=== PATIENT | male | born 1945 | race Caucasian/White ===

== ENCOUNTER → 2024-01-16 13:42 | Outpatient (REF) | payer MEDICARE, SELFPAY ==
[2024-01-16 15:33] LABS: PSA, Total - Diagnostic 0.09 ng/ml (0.0-4.0)
== END ==
LOC: REG 13:42
PROVIDERS: ATTENDING PHYSICIAN Internal Medicine; REFERRING PHYSICIAN Physician Assistant
DX: C61 Malignant neoplasm of prostate (principal)
CPT/HCPCS: 36415; 84153

== ENCOUNTER → 2024-02-20 11:34 | Outpatient (REF) | payer MEDICARE, SELFPAY ==
[2024-02-20 12:51] LABS: % Basophils 0.5 % (0-2); % Eosinophils 1.2 % (0-6); % Immature Granulocytes 0.2 % (0-0.5); % Lymphocytes 30.3 % (20.5-51.1); % Monocytes 10.5 % (1.7-9.3); % Neutrophils 57.3 % (42.2-75.2); Absolute Eosinophils 0.1 10^3/uL (0-0.7); Absolute Monocytes 0.7 10^3/uL (0.1-0.6); Absolute Neutrophils 3.8 10^3/uL (1.4-6.5); Hematocrit 45.4 % (39.0-52.0); Hemoglobin 15.8 g/dL (13.0-18.0); Mean Corp Hgb Conc. 34.8 g/dL (33.0-37.0); Mean Corpuscular Hgb 32.3 pg (27.0-31.0); Mean Corpuscular Volume 92.8 fL (80.0-94.0); Mean Platelet Volume 9.1 fL (7.4-10.4); Nucleated Red Blood Cells % 0 % (-); Platelet Count 244 10^3/uL (130-400); Red Blood Cell Count 4.89 10^6/uL (4.70-6.10); Red Cell Dist. Width 12.7 % (11.5-14.5); White Blood Cell Count 6.6 10^3/uL (4.8-10.8)
[2024-02-20 13:33] LABS: PSA, Total - Screen 0.08 ng/ml (0.0-4.0); TSH Reflex To Free T4 1.83 uIU/ml (0.47-4.68)
[2024-02-20 13:43] LABS: ALT (SGPT) 22 U/L (0-50); AST (SGOT) 28 U/L (17-59); Albumin 4.5 g/dl (3.5-5.0); Alkaline Phosphatase 71 U/L (38-126); Blood Urea Nitrogen 27 mg/dl (9-20); Calcium 9.9 mg/dl (8.4-10.2); Carbon Dioxide 24 mmol/L (22-30); Chloride 107 mmol/L (98-107); Glucose 103 mg/dl (70-99); HDL Cholesterol 48 mg/dl; LDL Cholesterol, Calculated 115 mg/dl; Potassium 4.4 mmol/L (3.5-5.1); Sodium 140 mmol/L (135-145); Total Bilirubin 0.8 mg/dl (0.2-1.3); Total Cholesterol 181 mg/dl (50-199); Total Protein 7.7 g/dl (6.3-8.2); Triglyceride 90 mg/dl (10-149); Very Low Density Lipoprotein 18 mg/dl (0-30); eGFR > 60.00
== END ==
LOC: REG 11:34
PROVIDERS: ATTENDING PHYSICIAN Internal Medicine
DX: Z79.01 Long term (current) use of anticoagulants (principal); I10 Essential (primary) hypertension; Z00.00 Encounter for general adult medical examination without abnormal findings; R53.83 Other fatigue; C61 Malignant neoplasm of prostate; Z12.5 Encounter for screening for malignant neoplasm of prostate
CPT/HCPCS: 36415; 80053; 80061; 84443; 85025; G0103

== ENCOUNTER 2024-04-15 09:57 | Day surgery (SDC) | payer MEDICARE, SELFPAY ==
[2024-03-26 12:52] VITALS: BMI 28.4
[2024-03-26 13:22] LABS: % Basophils 0.5 % (0-2); % Eosinophils 1.8 % (0-6); % Immature Granulocytes 0.3 % (0-0.5); % Lymphocytes 26.9 % (20.5-51.1); % Monocytes 9.5 % (1.7-9.3); Absolute Eosinophils 0.1 10^3/uL (0-0.7); Absolute Monocytes 0.7 10^3/uL (0.1-0.6); Absolute Neutrophils 4.5 10^3/uL (1.4-6.5); Hematocrit 45.3 % (39.0-52.0); Hemoglobin 15.5 g/dL (13.0-18.0); Mean Corp Hgb Conc. 34.2 g/dL (33.0-37.0); Mean Corpuscular Hgb 32.8 pg (27.0-31.0); Mean Corpuscular Volume 95.8 fL (80.0-94.0); Mean Platelet Volume 8.6 fL (7.4-10.4); Nucleated Red Blood Cells % 0 % (-); Platelet Count 235 10^3/uL (130-400); Red Blood Cell Count 4.73 10^6/uL (4.70-6.10); Red Cell Dist. Width 12.5 % (11.5-14.5); White Blood Cell Count 7.4 10^3/uL (4.8-10.8)
[2024-03-26 14:23] LABS: ALT (SGPT) 21 U/L (0-50); AST (SGOT) 27 U/L (17-59); Albumin 4.3 g/dl (3.5-5.0); Alkaline Phosphatase 60 U/L (38-126); Blood Urea Nitrogen 24 mg/dl (9-20); Calcium 9.3 mg/dl (8.4-10.2); Carbon Dioxide 28 mmol/L (22-30); Chloride 106 mmol/L (98-107); Estimated Creatinine Clearance 53 ml/min; Glucose 95 mg/dl (70-99); Potassium 4.8 mmol/L (3.5-5.1); Sodium 142 mmol/L (135-145); Total Bilirubin 0.6 mg/dl (0.2-1.3); Total Protein 7.2 g/dl (6.3-8.2); eGFR > 60.00
[2024-04-15] VITALS (16 sets, daily range): BP systolic 113–155; BP diastolic 74–101; BMI 28.2
--- NOTE | 2024-04-15 15:04 | ITS.CL.PACE ---
Ordnance Artificer Helper - Pacemaker Implant
Pacemaker Implant
Procedure Report:
Dual Chamber Pacemaker Placement:
Mr. 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
Indications: Tachy Brenton syndrome
Date of the Procedure: 04/15/24
Pre-Operative Diagnosis: Tachy Brenton syndrome
Post-Operative Diagnosis: Tachy Brenton syndrome
Procedure Performed: DUAL CHAMBER PACEMAKER IMPLANTATION
Performing Physician:
Juliet Causey MD
Assistants:
EP staff
Anesthesia:
See anethesia report
Pre-operative antibiotics:
Ancef
Detailed Description of the Procedure:
The patient was identified using hospital identification and informed consent obtained for the procedure. The risks were explained including, but not limited to: Bleeding, infection, arrhythmia, stroke, vascular/cardiac/lung puncture, surgery,
pacemaker dependency/device malfunction. All questions were answered.
The patient was brought to the electrophysiology laboratory in stable condition in fasting state. Continuous electrocardiographic and hemodynamic monitoring was initiated.
The initial rhythm was atrial fibirllation.
A surgical pause and time out was performed immediately prior to the procedure with review of her medical history, recent labs, allergies and medications with site of procedure identified and consent noted in the chart. Antibiotics pre operatively
given. All team members concurred.
The procedure site was meticulously prepared with surgical scrub and allowed to dry with no pooling. Sterile draping was applied to cover the procedure site. The image intensifier was draped with sterile bag and positioned over the patient.
The left infraclavicular region was prepped and draped in the usual sterile fashion. Local anesthesia was administered subcutaneously using 1% lidocaine / Bupivacaine. The left cephalic vein cutdown was performed with an incision at the
delto-pectoral groove, and vascular sheaths were introduced for lead access. These were advanced into the right ventricle and the right atrium.
There were extreme tortuosity noted in the subclavian vein and long sheaths were needed. The cardiac chambers were rotated as well.
The right ventricular lead was secured in position with an active fixation technique at the apical septal location. There was high impedance noted and multiple locations tested on the ventricular septum and high septal site was finally selected.
The atrial lead was placed in the right atrium.
Given atrial fibrillation, the patient underwent cardioversion with 200 J of shock achieving sinus rhythm.
The RA lead was attached in the right atrial appendage with active fixation.
There was excellent sensing, pacing, and impedance from the leads, with no diaphragmatic stimulation at 10 V output.�Bovie cautery, antibiotics, and fluoroscopy were used.
The sheaths were withdrawn, and the thresholds remained acceptable. The leads were secured in position at the venous entry site with 2-0 Ethibond suture. A pocket was fashioned contiguous to the incision. The electrode terminals were connected to
the pulse generator, which was placed into the pocket.
The device was anchored to the underlying fascia using 2-0 Ethibond suture.
The wound was irrigated thoroughly with antibiotic solution.
The wound was closed in 3 layers using 2-0 V loc then two layers of 4-0 V loc sutures to the dermis. Steri-strips were applied externally and covered with Aquacel bandage.
Procedure End:
The procedure was tolerated well.
Estimated Blood loss:
10 cc
Specimens Removed:
No cultures and no specimens were obtained. No intraoperative pathology was identified.
Fluoro time:
2.5 min / 5.9mGy
Urine output:
None
Packs / Drains/ Tubes:
None
Instrument / Sponge Count Correct:
Yes
Complications of the Procedure:
None
Condition of Patient at Time of Transfer:
Hemodynamically stable with no neurological or vascular compromise.
Device information:�
Generator: [employer]; Model: W1DR01; Serial # [id number]�
Atrial Lead:
[employer]; Model: 5076-52; Serial # [id number]
Measured data in the right atrium was sensing of 3.3 mV, impedance of 627 ohms and threshold of 1.0 V at 0.4ms.
RV Lead:
Medtronic; Model: 5076-58; Serial # [id number]
Measured data in the RV lead was sensing of 8.1mV, impedance of 1311 ohms and threshold of 0.75 V at 0.4ms�
Brenton parameter settings were AAIR < = > DDDR 60-130 bpm. �
����������� Mode Switch: On
����������� Paced AV interval: 180ms
����������� Sensed AV interval: 150 ms.
����������� Rate Adaptive A-V Interval: On
Output parameters:
����������������������� Amplitude (V)������������� Pulse Width (ms)������� Sensitivity (mV)
����������� RA: ���� 3.5 ����������������� ����������� 0.4������������������ ����������� 0.3
����������� RV:����� 3.5������������������ ����������� 0.4������������������ ����������� 0.9
Summary:
Successful implantation of MRI compatible dual chamber Medtronic pacemaker
Results/Recommendations:
-Please follow up CXR�
1. Please provide patient with adequate pain control�
Instructions to be given to patient:�
- Please follow up with [facility] at [address] [place] [address] ([phone]) to get your wound checked within 14 days of your discharge.
- Do not wet incision site until after it is evaluated at cardiology clinic. No soaking or bath until then. Showers or Sponge baths are OK.�Dab dry the area after a shower.
- Do not lift left elbow above shoulder, particularly with sudden jerking movements, for 1 month�
- Do not lift anything weighing more than 10 pounds with the left arm for 1 month�
- If you notice any fevers, shortness of breath, lightheadedness, chest pain, or worsening swelling in the wound site, please contact the arrhythmia clinic, contact your prototype machine operator, or present to the hospital for evaluation.�
Juliet Causey MD
Electrophysiology
--- NOTE | 2024-04-15 15:35 | PTCARENOTE ---
Pt taken to xray via stretcher with play writer and RN
--- NOTE | 2024-04-15 15:48 | PTCARENOTE ---
Pt returned from xray via stretcher with electrical drafter and RN.
--- NOTE | 2024-04-15 16:00 | W.PN.UPDATE ---
Update Note
Progress Note Update
78 yo WM s/p DC PPM Medtronic and Cardioversion (same day). He has h/a treated with Tylenol, EKG Apaced, CXR no PTX. He will resume his Xarelto tonight and watch site for bleeding/swelling. Activity restrictions reviewed. He has inc check apt in 1
week. He is for d/c home after 6pm and IV ancef dose.
[2024-04-15] MEDS: TYLENOL 1000 MG PO (16:02)
--- NOTE | 2024-04-15 16:34 | PTCARENOTE ---
Alley Beard MECHANICAL MANAGER at pt bedside speaking to pt and pt's .
[2024-04-15] MEDS: ANCEF 5 IV (18:12)
== END 2024-04-15 18:30 | disposition home or self-care (01) ==
LOC: CATH 09:57
PROVIDERS: ATTENDING PHYSICIAN Internal Medicine Cardiovascular Disease; FAMILY PHYSICIAN Internal Medicine
DX: I49.5 Sick sinus syndrome (principal); K21.9 Gastro-esophageal reflux disease without esophagitis; I10 Essential (primary) hypertension; I48.19 Other persistent atrial fibrillation; M48.00 Spinal stenosis, site unspecified; Z85.46 Personal history of malignant neoplasm of prostate; Z85.528 Personal history of other malignant neoplasm of kidney; Z90.79 Acquired absence of other genital organ(s); Z90.5 Acquired absence of kidney; Z86.006 Personal history of melanoma in-situ; Z79.899 Other long term (current) drug therapy; Z79.01 Long term (current) use of anticoagulants; I47.10 Supraventricular tachycardia, unspecified
CPT/HCPCS: 33208; 36415; 71045; 80053; 85025; 93005; C1785; C1892; C1898

== ENCOUNTER → 2024-07-19 11:05 | Outpatient (REF) | payer MEDICARE, SELFPAY | LOC: REG 11:05 | PROVIDERS: ATTENDING PHYSICIAN Physician Assistant; FAMILY PHYSICIAN Internal Medicine | DX: C61 Malignant neoplasm of prostate (principal) | CPT/HCPCS: 36415; 84153; 84403 ==

== ENCOUNTER → 2024-07-27 07:35 | Day surgery (SDC) | payer MEDICARE, SELFPAY ==
[2024-07-27 08:36] VITALS: BMI 26.5
== END ==
LOC: CATH 07:35
PROVIDERS: ATTENDING PHYSICIAN Student in an Organized Health Care Education/Training Program; FAMILY PHYSICIAN Internal Medicine; OTHER PHYSICIAN Internal Medicine Cardiovascular Disease
DX: I48.19 Other persistent atrial fibrillation (principal); I48.92 Unspecified atrial flutter; I49.5 Sick sinus syndrome; Z95.0 Presence of cardiac pacemaker; I10 Essential (primary) hypertension; K21.9 Gastro-esophageal reflux disease without esophagitis; Z85.46 Personal history of malignant neoplasm of prostate; Z85.820 Personal history of malignant melanoma of skin; Z79.01 Long term (current) use of anticoagulants
CPT/HCPCS: 92960; 93005

== ENCOUNTER 2024-09-24 06:23 | Day surgery (SDC) | payer OTHER, SELFPAY | END 2024-09-24 10:41 | disposition home or self-care (01) | LOC: GI 06:23 | PROVIDERS: ATTENDING PHYSICIAN Internal Medicine Gastroenterology | DX: Z12.11 Encounter for screening for malignant neoplasm of colon (principal); K63.5 Polyp of colon; K64.8 Other hemorrhoids; Z86.0100 Personal history of colon polyps, unspecified | CPT/HCPCS: 45385; 88305 ==

== ENCOUNTER 2024-10-04 06:53 | Day surgery (SDC) | payer OTHER, SELFPAY ==
[2024-09-20 08:15] VITALS: BMI 27.3
--- NOTE | 2024-09-20 08:25 | HPS.HSE ---
Family Physician
-
Family Physician: Donnie Whitney
Chief Complaint
-
Persistent atrial fibrillation.
History of Present Illness
The patient is a 79 year old male presenting today for persistent atrial fibrillation. The patient denies any current symptoms associated with his atrial fibrillation. He has previously undergone multiple cardioversions and pulmonary vein
isolation 5 times for his arrhythmia. He is on current pharmacological therapy with Sotalol. He previously failed medical therapy with Flecainide and Tikosyn due to a prolonged QT. He does report compliance with Xarelto recently due to a CHADS-VASc
of 3. He is interested in pursuing with FARAPULSE atrial fibrillation ablation for further arrhythmia management. He denies any current complaints today such as chest pain, shortness of breath at rest, palpitations, nausea, vomiting, diarrhea,
lightheadedness, dizziness, sore throat, or fever. He does report an intermittent, non-productive cough associated with his chronic post-nasal drip. He was recently started on Flonase by his primary care physician due to this.
Medical History
Past Medical History
Past Medical History: Reports Other
Additional Past Medical History:
1. Persistent atrial fibrillation, status post multiple cardioversions and pulmonary vein isolation x5; pharmacological therapy with Sotalol and oral anticoagulation with Xarelto.
2. Atrial flutter, status post ablation 2000.
3. Sick sinus syndrome, status post Medtronic dual chamber pacemaker insertion 03/2024.
4. First degree AV block.
5. Hypertension.
6. Mild aortic stenosis.
7. Mild renal insufficiency per pre-operative labs.
8. GERD.
9. Colon polyps.
10. Remote nephrolithiasis.
11. Abdominal hernia, reducible and asymptomatic.
12. Sciatica.
13. Prostate cancer, >10 years ago, status radical prostatectomy; reoccurrence, status post radiation.
14. Renal cancer, >10 years ago, status post partial nephrectomy.
15. Melanoma in situ, status post excision.
16. Chronic post-nasal drip.
Past Surgical History: Reports Other
Additional Past Surgical History:
1. Pulmonary vein isolation x5.
2. Multiple cardioversions.
3. Medtronic dual chamber pacemaker insertion.
4. Radical prostatectomy.
5. Partial nephrectomy.
6. Documented rectal surgery with prosthetic sphincter.
7. Bilateral inguinal hernia repair.
8. Tonsillectomy.
9. Multiple colonoscopies.
10. Endoscopy.
Social History
Tobacco: Non-smoker
Alcohol: Other (Rare use reported. )
Personal:
Living: Other (He lives in a 2 story home with his . )
Family History
Family History: Not pertinent
Allergies / Home Medications
Allergy/Medication List:
Home medications:
1. Amlodipine 5 mg p.o. every evening.
2. Ascorbic acid 1000 mg p.o. daily.
3. Calcium carbonate-vitamin D3 1 capsule p.o. at bedtime.
4. Cholecalciferol 50 mcg p.o. daily.
5. Flonase 1 spray intranasal at bedtime.
6. Magnesium 500 mg p.o. at bedtime.
7. Multivitamin 1 tablet p.o. daily.
8. Omeprazole 20 mg p.o. daily as needed.
9. Sotalol 80 mg p.o. twice a day.
10. Xarelto 20 mg p.o. at bedtime.
Allergies: No known allergies.
Review of Systems
-
A 12 point ROS was completed and negative except as noted: Yes
Physical Exam
Vital Signs
Blood pressure 140/91. Heart rate 71. Respirations 18. Pulse ox 97% on room air.
Height 5 feet, 10 inches. Weight 87.6 kg. BMI 27.3.
Physical Exam
General: Well Developed, Well Nourished and No Apparent Distress
HEENT: NormoCephalic, Moist mucous membranes, Atraumatic and PERRLA
Respiratory: Clear
Cardiac: Regular Rhythm and Other (Pacemaker site intact. )
GI: Soft, Non Tender, Non Distended and Other (Non-strangulated abdominal hernia. )
Musculoskeletal: No Edema and Normal Gait & Station
Skin: Warm and Dry
Neuro: AO x 3 and Nonfocal/grossly intact
Laboratory Results
-
DIAGNOSTIC STUDIES as of 09/20/2024: White blood cell count 7.2. Hemoglobin 15.9. Platelet count 229,000. Sodium 143. Potassium 4.3. BUN 30. Creatinine 1.3. Glucose 104. Calcium 9.4. AST 27. ALT 23. Albumin 4.6.
EKG 09/20/2024: Ventricular-paced rhythm.
Echocardiogram 07/02/2023: Normal left ventricular size and systolic function. LV ejection fraction is 72%. Mild aortic stenosis. No prior study available for comparison.
Impression/Plan
-
IMPRESSION/PLAN:
1. Persistent atrial fibrillation: The patient is in need of a FARAPULSE atrial fibrillation ablation with Dr. Juliet Causey on 10/04/2024. The benefits and risks of the procedure have been explained to the patient. The patient understands these
risks and wishes to proceed. He will be undergoing a routine colonoscopy on 09/24/2024 in which he will need to hold his home Xarelto 2 days prior. This was discussed with Dr. Causey pre-operatively. Given this, he will undergo a transesophageal
echocardiogram the morning of his ablation to definitively rule out a thrombus. If no thrombus is visualized, he can proceed as planned with ablation.
[2024-09-20 08:37] LABS: % Basophils 0.4 % (0-2); % Immature Granulocytes 0.3 % (0-0.5); % Lymphocytes 25.5 % (20.5-51.1); % Monocytes 11.4 % (1.7-9.3); % Neutrophils 60.4 % (42.2-75.2); Absolute Eosinophils 0.1 10^3/uL (0-0.7); Absolute Lymphocytes 1.8 10^3/uL (1.2-3.4); Absolute Monocytes 0.8 10^3/uL (0.1-0.6); Absolute Neutrophils 4.3 10^3/uL (1.4-6.5); Hematocrit 46.5 % (39.0-52.0); Hemoglobin 15.9 g/dL (13.0-18.0); Mean Corp Hgb Conc. 34.2 g/dL (33.0-37.0); Mean Corpuscular Hgb 32.9 pg (27.0-31.0); Mean Corpuscular Volume 96.3 fL (80.0-94.0); Mean Platelet Volume 8.5 fL (7.4-10.4); Nucleated Red Blood Cells % 0 % (-); Platelet Count 229 10^3/uL (130-400); Red Blood Cell Count 4.83 10^6/uL (4.70-6.10); Red Cell Dist. Width 13.1 % (11.5-14.5); White Blood Cell Count 7.2 10^3/uL (4.8-10.8)
[2024-09-20 09:02] LABS: ALT (SGPT) 23 U/L (0-50); AST (SGOT) 27 U/L (17-59); Albumin 4.6 g/dl (3.5-5.0); Alkaline Phosphatase 61 U/L (38-126); Blood Urea Nitrogen 30 mg/dl (9-20); Calcium 9.4 mg/dl (8.4-10.2); Carbon Dioxide 33 mmol/L (22-30); Chloride 102 mmol/L (98-107); Estimated Creatinine Clearance 49 ml/min; Glucose 104 mg/dl (70-99); Potassium 4.3 mmol/L (3.5-5.1); Sodium 143 mmol/L (135-145); Total Bilirubin 0.8 mg/dl (0.2-1.3); Total Protein 7.7 g/dl (6.3-8.2); eGFR 56.23
[2024-10-04] VITALS (17 sets, daily range): BP systolic 114–152; BP diastolic 72–93; BMI 26.5
[2024-10-04 11:23] LABS: ACT-LR - POC 348 Seconds (116-155)
[2024-10-04 11:42] LABS: ACT-LR - POC 387 Seconds (116-155)
[2024-10-04 12:05] LABS: ACT-LR - POC 347 Seconds (116-155)
--- NOTE | 2024-10-04 12:22 | ITS.CL.ABL ---
Junior Web Developer - Ablation
Ablation
Procedure Report:
AFIB ablation:
Mr. Jameson is a very pleasant 79 yr old gentleman with symptomatic persistent AF s/p AF ablation 2012, 2016 with PVI ([place]), 2022 with radiofrequency (PVI and PWI) who had recurrent atrial fibrillation failed Sotalol, with SSS s/p dual
chamber PPM is recommended a redo AF ablation.
Date of the Procedure:
05/20/2024
Indications:
Persistent with recurrent atrial fibrillation / Flutter
Pre-Operative Diagnosis:
Persistent with recurrent atrial fibrillation / Flutter
Post-Operative Diagnosis:
Persistent with recurrent atrial fibrillation / Flutter
Procedure Performed:
Atrial fibrillation ablation with Pulsed-Field approach for substrate modification
Posterior wall isolation extension
Mitral flutter ablation
Left atrial anterior wall focal tachycardia ablation
Biatrial flutter ablation
Performing Physician:
Juliet Causey MD
Assistants:
EP staff
Anesthesia:
See anesthesia records
Detailed Description of the Procedure:
Written informed consent was obtained from the patient after a full explanation of the risks and benefits of the procedure including the risks of sedation and anesthesia.
The patient was brought to the electrophysiology laboratory in stable condition in fasting state. Continuous electrocardiographic and hemodynamic monitoring was initiated.
The initial rhythm was atrial fibrillation.
The procedure site was meticulously prepared with surgical scrub and allowed to dry with no pooling. Sterile draping was applied to cover the procedure site. The image intensifier was draped with sterile bag and positioned over the patient. After
infusion of local anesthetic, vascular access was obtained under ultrasound guidance and sheaths were placed over guide wire as detailed below.
Sheath and Catheter Placement:
The following catheters / sheaths were placed
Sheaths:
��������� 17Fr steerable sheath (Faradrive�, [employer]) in right femoral
��������� 9Fr in right femoral vein
Catheters:
��������� LIZETTE HD Grid mapping catheter � at locations of RA, LA
��������� Farawave� PFA catheter
��������� ICE catheter -AcuNav - at locations of RA, SVC, and RV.
��������� Decapolar Bard catheter in RA and CS
Intracardiac ECHO:
An 8-Nepalese AcuNav intracardiac ECHO (ICE) probe was advanced through the 9-Nepalese sheath in the right femoral vein into the right atrium under fluoroscopic and ICE ultrasound image guidance and a baseline ECHO study was performed. The left atrial
size was dilated. There was moderate tricuspid regurgitation. The aortic valve was grossly normal. There was normal left ventricular systolic functions. There is no pericardial effusion. All the four veins were identified and has flow identified.
There was sluggish flow noted in the RICHELLE with decreased velocities noted on Doppler.
During the procedure, ICE was used for monitoring of complications, guidance of trans-septal puncture, monitor the catheter position and tracking ablation lesions. No change in the pericardial space noted throughout the procedure.
Trans-septal Puncture:
Heparin was initiated and infused to maintain appropriate ACT. A pigtail guidewire was advanced through the 8-Nepalese sheath in the right femoral vein into the superior vena cava under fluoroscopic and ICE guidance. The 9-Nepalese sheath was exchanged
for a Faradrive sheath which was advanced into the superior vena cava. A transseptal RF pigtail via Faradrive connect system was utilized to perform the trans-septal puncture. The apparatus was withdrawn until it was in contact with the fossa
ovalis. The position was adjusted based on fluoroscopy and ultrasound images from ICE. Under fluoroscopic, hemodynamic and ICE ultrasound guidance, left atrium was cannulated by applying RF energy. Once atrial septum was cannulated, the pigtail wire
was advanced through the needle into the left atrium. The guide wire was advanced into the left superior pulmonary vein. Both the sheath and the dilator was advanced into the left atrium. The dilator with the needle was withdrawn. Blood was
aspirated from the Faradrive sheath and arterial blood confirmed. The sheath was flushed. Saline injection noted into the left atrium on ICE. The mapping catheter was advanced in the sheath into the left pulmonary vein. Left atrial pressure was
measured.
3D Electroanatomic Mapping:
Using the HD Grid catheter advanced through sheath into the left atrium, an electroanatomic map (EAM) of the left atrium was created using [employer] LIZETTE mapping system. The map was used for localization of catheter position and tacking of ablation
lesions.
The EAM of the left atrium showed 4 pulmonary veins with all 4 veins electrically isolated from the body the LA. It showed scattered extensive areas of scar on the posterior and anterior wall of the LA. The previous PVI was still holding with no
reconnections. The Posterior wall was again isolated with no electrical activity noted.
The LA was dilated in size.
Cardioversion:
Once the PV isolation was confirmed, decision was made to proceed with cardioversion. A 200 J biphasic shock was applied on the lorena posterior Zoll patches and sinus rhythm was achieved. Patient went back into atrial flutter /fibrillation. No
significant pause noted.
Following the EAM, preparation were made for ablation.
Ablation:
Ablation # 1: Substrate Modification:
Patient has working PPM with intermittent RV pacing noted and decision was made to not give Glycopyrrolate. Using Farawave pulsed wave ablation system, the left atrial fractionated signals were mapped and CFAE along with high frequency areas were
noted.
The Farawave ablation catheter was introduced in the LA and was shaped in �Flower� configuration. The areas of interest were ablated using 2-3 ablation lesions of pulsed field energy.
Patient remained in atrial fibrillation.
Ablation # 2: Posterior wall isolation:
Using the pulsed field ablation catheter, the catheter was placed on the posterior wall and moved around the posterior wall to have adequate contact and ablations were placed isolating the posterior wall. The areas of the posterior wall was extended
both superiorly and inferiorly.
The areas of the antrum were ablated using the pulsed field Farawave PFA catheter.
Mitral Flutter ablation:
The flutter was entrained from the right and the left atria. The right side was out. The left atrium was in the tachycardia.
The flutter was mapped but degenerated into atrial fibrillation.
Using the Farapulse ablation catheter, the ablation cathere was put on the lateral mitral isthmus below the LIPV in �Flower� shape. Ablations were placed on the mitral isthmus and block was achieved.
Bi-Atrial Flutter Ablation:
Using the Farapulse ablation catheter, the flower was placed on the atrial septum and ablation was placed terminating the tachycardia to atrial paced rhythm.
Further ablations were placed to connect the septum to mitral antrum.
Focal/Micro-reentry atrial tachycardia ablation:
The farapulse ablation catheter was moved into a flower shape and placed on origin with focal AT vs micro-rentry AFL on the septal wall of the LA. With placement of the ablation, the tachycardia terminated and atrial paced rhythm noted.
Post ablation Electroanatomic mapping:
Once ablation was completed, the EAM of the LA was done again in sinus rhythm with excellent demarcation of LA myocardium and isolated antral tissue.
The RICHELLE had healthy signals and was not isolated.
Procedure End
ICE study was done again that showed no epicardial accumulation. No complications noted.
Following the completion of the EP study, catheters were removed. Protamine 40 mg was given at the end of the procedure and ACT was checked repeatedly. The sheaths were removed and hemostasis achieved with VASCADE and manual compression after
acceptable ACT is achieved.
Left atrial Pressure:
Mean LA pressure is 17mmHg
Mean RA pressure is 9 mmHg
Estimated Blood loss:
<10 cc
Specimens Removed:
None.
Implants / Devices:
None
Urine output:
None
Packs / Drains/ Tubes:
None
Instrument / Sponge Count Correct:
Yes
Complications of the Procedure:
None
Condition of Patient at Time of Transfer:
Hemodynamically stable with no neurological or vascular compromise.
Summary:
Successful atrial fibrillation ablation with Pulsed Field approach for substrate modification, posterior wall isolation, Mitral flutter ablation, Left atrial anterior wall focal tachycardia ablation, Biatrial flutter ablation
Figures from the Procedure:
Figure 1: The electroanatomic mapping (EAM) of the left atrium with bipolar voltage (purple indicates normal electrical activity with agosto as no myocardial muscle electric activity indicating a line of block or scar.
pre
Post
--- NOTE | 2024-10-04 13:02 | PTCARENOTE ---
Pt's right groin looks slightly puffy but soft. Dr Causey at pt bedside to assess right groin. Dr Causey states no hematoma. Will continue to monitor.
[2024-10-04] MEDS: ANESTHETIC LOZENGE 1 LOZENGE PO (13:44)
--- NOTE | 2024-10-04 16:35 | W.PN.UPDATE ---
Update Note
Progress Note Update
Pt seen post PFA. Right groin site with vascade closure, no ht/bleeding. OOB ambulating, urinating without difficulty. Post EKG SB 50s, no acute changes. Resume Xarelto tonight at usual time, continue sotalol as before. Followup at [facility] as scheduled.
Home today if groin site/tele remain stable.
== END 2024-10-04 16:05 | disposition home or self-care (01) ==
LOC: CATH 06:53
PROVIDERS: ATTENDING PHYSICIAN Internal Medicine Cardiovascular Disease; FAMILY PHYSICIAN Internal Medicine
DX: I48.19 Other persistent atrial fibrillation (principal); I48.92 Unspecified atrial flutter; I47.19 Other supraventricular tachycardia; I49.5 Sick sinus syndrome; I44.0 Atrioventricular block, first degree; I10 Essential (primary) hypertension; N28.9 Disorder of kidney and ureter, unspecified; K21.9 Gastro-esophageal reflux disease without esophagitis; Z86.0100 Personal history of colon polyps, unspecified; Z87.442 Personal history of urinary calculi; K46.9 Unspecified abdominal hernia without obstruction or gangrene; Z90.79 Acquired absence of other genital organ(s); Z85.46 Personal history of malignant neoplasm of prostate; Z85.528 Personal history of other malignant neoplasm of kidney; Z90.5 Acquired absence of kidney; Z85.820 Personal history of malignant melanoma of skin; R09.82 Postnasal drip; Z79.899 Other long term (current) drug therapy; Z79.01 Long term (current) use of anticoagulants; I08.1 Rheumatic disorders of both mitral and tricuspid valves; Q24.8 Other specified congenital malformations of heart; R05.9 Cough, unspecified; M54.30 Sciatica, unspecified side
CPT/HCPCS: 93655; 93312; 93320; 93325; C1759; C1892; C1766; 36415; 80053; 85025; 85347; 93005; 93656; 93657; C1732; C1733; C1760

== ENCOUNTER → 2025-01-07 09:40 | Outpatient (REF) | payer OTHER, SELFPAY ==
[2025-01-07 10:39] LABS: % Basophils 0.5 % (0-2); % Immature Granulocytes 0.3 % (0-0.5); % Monocytes 9.7 % (1.7-9.3); % Neutrophils 59.5 % (42.2-75.2); Absolute Eosinophils 0.1 10^3/uL (0-0.7); Absolute Lymphocytes 1.8 10^3/uL (1.2-3.4); Absolute Monocytes 0.6 10^3/uL (0.1-0.6); Absolute Neutrophils 3.9 10^3/uL (1.4-6.5); Hematocrit 45.8 % (39.0-52.0); Hemoglobin 15.2 g/dL (13.0-18.0); Mean Corp Hgb Conc. 33.2 g/dL (33.0-37.0); Mean Corpuscular Hgb 32.1 pg (27.0-31.0); Mean Corpuscular Volume 96.8 fL (80.0-94.0); Mean Platelet Volume 9.1 fL (7.4-10.4); Nucleated Red Blood Cells % 0 % (-); Platelet Count 218 10^3/uL (130-400); Red Blood Cell Count 4.73 10^6/uL (4.70-6.10); Red Cell Dist. Width 12.7 % (11.5-14.5); White Blood Cell Count 6.5 10^3/uL (4.8-10.8)
[2025-01-07 11:10] LABS: ALT (SGPT) 23 U/L (0-50); AST (SGOT) 27 U/L (17-59); Albumin 4.6 g/dl (3.5-5.0); Alkaline Phosphatase 54 U/L (38-126); Blood Urea Nitrogen 25 mg/dl (9-20); Calcium 9.9 mg/dl (8.4-10.2); Carbon Dioxide 29 mmol/L (22-30); Chloride 107 mmol/L (98-107); Glucose 103 mg/dl (70-99); HDL Cholesterol 53 mg/dl; LDL Cholesterol, Calculated 117 mg/dl; Potassium 4.5 mmol/L (3.5-5.1); Sodium 146 mmol/L (135-145); Total Bilirubin 0.8 mg/dl (0.2-1.3); Total Cholesterol 184 mg/dl (50-199); Triglyceride 74 mg/dl (10-149); Very Low Density Lipoprotein 14 mg/dl (0-30); eGFR > 60.00
[2025-01-07 12:19] LABS: TSH Reflex To Free T4 2.13 uIU/ml (0.47-4.68)
== END ==
LOC: REG 09:40
PROVIDERS: ATTENDING PHYSICIAN Physician Assistant; OTHER PHYSICIAN Internal Medicine
DX: C61 Malignant neoplasm of prostate (principal); I10 Essential (primary) hypertension; Z79.01 Long term (current) use of anticoagulants; I48.0 Paroxysmal atrial fibrillation; Z13.89 Encounter for screening for other disorder
CPT/HCPCS: 36415; 80053; 80061; 84153; 84403; 84443; 85025

== ENCOUNTER → 2025-07-25 12:14 | Outpatient (REF) | payer OTHER, SELFPAY ==
[2025-07-25 20:28] LABS: PSA, Total - Diagnostic 0.16 ng/ml (0.0-4.0)
== END ==
LOC: REG 12:14
PROVIDERS: ATTENDING PHYSICIAN Physician Assistant; FAMILY PHYSICIAN Internal Medicine
DX: C61 Malignant neoplasm of prostate (principal)
CPT/HCPCS: 36415; 84153; 84403